=== PATIENT | female | born 1950 | race Caucasian/White ===

== ENCOUNTER 2020-03-24 08:47 | Outpatient (REF) | payer MEDICARE, MEDICAID, SELFPAY ==
--- NOTE | 2020-03-24 09:14 | MM_ITS ---
EXAMINATION: MM SCREENING DIGITAL BREAST TOMOSYNTHESIS, BILATERAL CLINICAL INFORMATION: Right lumpectomy for invasive lobular cancer 2016. Benign right stereotactic biopsy 2018 (benign breast tissue with stromal fibrosis and focal sclerosing adenosis with dystrophic calcifications). Due for yearly. COMPARISON: Mammography: 03/22/2019, 03/19/2018, 11/18/2017 TECHNIQUE: Digital breast tomosynthesis is performed in both the craniocaudal and mediolateral oblique views along with computer-aided detection (CAD). Synthesized 2D images are generated from the tomosynthesis. FINDINGS: There are scattered areas of fibroglandular density (ACR BI-RADS breast composition Category b). Parenchymal pattern is similar to prior exams. There is no developing density or interval mass or architectural abnormality. Again, there is stable scarring upper right breast along with surgical clips. There is biopsy clip marker again seen mid 12:00 left breast and 2 biopsy clip markers are present mid upper outer right breast. No significant changes. MM/MM tomosynthesis screening BI IMPRESSION: No significant changes from prior study. ASSESSMENT: BI-RADS 2: Benign RECOMMENDATION: Routine annual mammography screening. This patient's information was entered into a reminder system with a target due date for their next mammogram.
== END 2020-03-24 08:48 | disposition home or self-care (01) ==
LOC: HO.MAMMO 08:47
PROVIDERS: PCP Internal Medicine; Visit Provider Internal Medicine
DX: Z12.31 Encounter for screening mammogram for malignant neoplasm of breast (principal)
CPT/HCPCS: 77063; 77067

== ENCOUNTER 2020-06-19 14:18 | Outpatient (REF) | payer MEDICARE, MEDICAID, SELFPAY ==
[2020-06-19 14:58] LABS: MANUAL DIFF FLAG NO
[2020-06-19 15:00] LABS: Glucose Urine UA NEG (NEG); Leukocyte Esterase Urine TRACE (NEG); Nitrite Urine NEG (NEG); Urine Blood NEG (NEG); Urine Ketones NEG (NEG); Urine Protein NEG (NEG-TRACE)
[2020-06-19 15:02] LABS: Appearance Urine HAZY; Color Urine YELLOW
[2020-06-19 15:05] LABS: Basophils Percent Auto 0.8 % (0-2); Eosinophils Absolute Auto 0.1 X10*3/uL (0.0-0.4); Eosinophils Percent Auto 2.5 % (0-4); Hematocrit 42.3 % (37-47); Imm Gran Abs Auto 0.01 X10*3/uL (0.00-0.03); Imm Gran Pct Auto 0.3 % (0.0-0.4); Lymphocytes Absolute Auto 1.1 X10*3/uL (1.2-4.9); Lymphocytes Percent Auto 30.1 % (20-40); Mean Corpuscular HGB Conc 33.1 g/dl (31.0-35.0); Mean Corpuscular Hemoglobin 30.6 pg (27.0-33.0); Mean Corpuscular Volume 92.4 fL (80-98); Mean Platelet Volume 10.4 fL (9.4-12.3); Monocytes Absolute Auto 0.3 X10*3/uL (0.1-1.2); Monocytes Percent Auto 8.2 % (2-11); Neutrophils Absolute Auto 2.1 X10*3/uL (2.0-8.3); Neutrophils Percent Auto 58.1 % (45-73); Platelet Count 161 X10*3/uL (160-400); Red Blood Count 4.58 X10*6/uL (4.20-5.50); Red Cell Distribution Width 12.6 % (11.0-16.0); White Blood Count 3.7 X10*3/uL (4.8-10.8)
[2020-06-19 15:13] LABS: Mucus Urine TRACE /LPF; Squamous Epithelial Cell Urine TRACE /LPF; WBC Urine 0-2 /HPF (0-4)
[2020-06-19 15:32] LABS: Alanine Aminotransferase 13 U/L (0-31); Albumin Level 4.3 g/dL (3.5-5.0); Alkaline Phosphatase 81 U/L (39-117); Anion Gap 11 (12-20); Aspartate Amino Transferase 14 U/L (5-31); Bilirubin Total 0.3 mg/dL (0.0-1.0); Blood Urea Nitrogen 26 mg/dL (9-16); Calcium 9.1 mg/dL (8.4-10.2); Carbon Dioxide 31 mmol/L (22-29); Chloride 103 mmol/L (96-108); Cholesterol 155 mg/dL; Estimated Glomerular Filt Rate > 60; Glucose Random 107 mg/dL (60-115); HDL Cholesterol 43 mg/dL; LDL Cholesterol Calculated 76 mg/dl; Potassium 4.3 mmol/L (3.3-5.1); Sodium 141 mmol/L (135-145); Triglycerides 183 mg/dL
[2020-06-19 15:53] LABS: Thyroid Stimulating Hormone 1.36 uIU/mL (0.32-4.0)
== END 2020-06-19 14:19 | disposition home or self-care (01) ==
LOC: HO.LAB 14:18
PROVIDERS: PCP Internal Medicine; Visit Provider Internal Medicine
DX: E78.00 Pure hypercholesterolemia, unspecified (principal)
CPT/HCPCS: 36415; 80053; 80061; 81001; 84443; 85025

== ENCOUNTER 2021-03-13 12:57 | Outpatient (REF) | payer MEDICARE, MEDICAID, SELFPAY ==
--- NOTE | ~2021-03-13 | MM_ITS ---
EXAMINATION: MM DIAGNOSTIC DIGITAL BREAST TOMOSYNTHESIS, BILATERAL US DIAGNOSTIC ULTRASOUND BREAST, RIGHT CLINICAL INFORMATION: Palpable fullness posterior inferior right breast noted by patient. Prior history invasive lobular cancer right breast 2016, lumpectomy performed at [facility]. Patient reports nodes negative. Also benign right INTACT stereotactic biopsy [address] Pierre (benign breast tissue with stromal fibrosis and focal sclerosing adenosis with dystrophic calcifications). COMPARISON: Mammography: 03/24/2020, 03/22/2019, 03/19/2018, 05/07/2017 TECHNIQUE: Digital breast tomosynthesis is performed in both the craniocaudal and mediolateral oblique views along with computer-aided detection (CAD). Synthesized 2D images are generated from the tomosynthesis. Additional spot right CC and spot right LM x2 views are obtained. Ultrasound right breast is targeted to the inferior posterior breast. Additional imaging also performed right axilla. Grayscale imaging and color Doppler are performed without and with harmonics. FINDINGS: There are scattered areas of fibroglandular density (ACR BI-RADS breast composition Category b). There is new irregular mass at site of clinical concern posterior 6:00 right breast measuring approximately 1.4 x 1.9 cm. There are some associated punctate calcifications in the lesion. There are 2 old biopsy clip markers again seen right breast mid upper outer quadrant. There are surgical clips right axilla. Axillary nodes stable. Left breast appears stable from prior studies. There is a biopsy clip marker mid 12:00 position. Parenchymal asymmetry mid outer left breast is stable. No developing density or abnormal calcifications. Axillary nodes stable. Ultrasound right breast demonstrates irregular hypoechoic mass 6:00 position 5 cm from nipple with posterior shadowing and greatest dimension 1.8 cm. This corresponds to the lesion on mammography. Additional imaging right axilla shows no lymphadenopathy. Results are discussed with the patient at time of visit. Ultrasound guided core biopsy is recommended. Results and recommendation also called to oncology manager cargo (Teresita) for Dr. Rosario on 03/13/2021. MM/MM tomosynthesis diagnostic BI IMPRESSION: 1. Right: Irregular mass posterior inferior right breast 1.8 cm. 2. Left: No mammographic evidence of malignancy. ASSESSMENT: BI-RADS 4: Suspicious (subcategory 4C: High suspicion for malignancy) RECOMMENDATION: Ultrasound-guided core biopsy right breast mass. This patient's information was entered into a reminder system with a target due date for their next mammogram.
== END 2021-03-13 12:58 | disposition home or self-care (01) ==
LOC: HO.MAMMO 12:57
PROVIDERS: PCP Internal Medicine; Visit Provider Internal Medicine
DX: Z85.3 Personal history of malignant neoplasm of breast (principal)
CPT/HCPCS: 76642; 77062; 77066

== ENCOUNTER 2021-03-15 09:18 | Outpatient (REF) | payer MEDICARE, MEDICAID, SELFPAY ==
--- NOTE | ~2021-03-15 | MM_ITS ---
EXAMINATION: ULTRASOUND GUIDED CORE BIOPSY BREAST, RIGHT POST PROCEDURE DIGITAL MAMMOGRAM, RIGHT CLINICAL INFORMATION: Suspicious mass posterior inferior right breast 1.8 cm. Prior history invasive lobular cancer right breast 2016, lumpectomy performed at [facility]. COMPARISON: Mammography and targeted right breast ultrasound 03/13/2021. FINDINGS: Proper informed consent is obtained from the patient after discussion of the procedure, potential risks and complications, and alternatives. Patient was given an opportunity for questions. The patient appeared to understand. The patient consented to the procedure and signed the consent form. GUIDANCE: Ultrasound-guided; aseptic technique. LESION: Irregular hypoechoic mass posterior 6:00 position 1.8 cm. APPROACH: Lateral medial. ANESTHESIA: 16 mL carbonated 1% lidocaine. DERMATOTOMY: Single skin nitesh dermatotomy performed. NEEDLE: 14-gauge Achieve core biopsy device with 13.5-gauge co-axial guide needle. CORES: 5. CLIP: HydroMARK; shape: butterfly. POST PROCEDURE UNILATERAL DIGITAL MAMMOGRAM: The post biopsy mammogram is performed in separate room using separate digital mammography equipment from the biopsy procedure. CC and ML views are obtained.There are scattered areas of fibroglandular density (breast composition category: b). The butterfly clip marker overlies the mass in expected position. There are other clip markers upper outer quadrant right breast and surgical clips right axilla. No gross hematoma. The patient tolerated the procedure well. No immediate complications. Home instructions reviewed with the patient. Final pathology results are pending. MM/MM diagnostic mammo unilat RT IMPRESSION: 1. Status post ultrasound-guided core biopsy right breast. 2. Clip placed: HydroMARK; shape: butterfly. 3. Pathology pending. An addendum report will be issued.
[2021-03-15] MEDS: Lidocaine HCl 1 % 20 ML VIAL 9 ML SUBCUT (10:51)
[2021-03-15] MEDS: Sodium Bicarbonate 8.4% 50 MEQ/50 ML VIAL SUBCUT (10:52)
== END 2021-03-15 09:19 | disposition home or self-care (01) ==
LOC: HO.MAMMO 09:18
PROVIDERS: PCP Internal Medicine; Visit Provider Surgery
DX: R92.8 Other abnormal and inconclusive findings on diagnostic imaging of breast (principal)
CPT/HCPCS: 19083; 77065; 88305; 88360; 99202

== ENCOUNTER → 2021-03-20 10:48 | Outpatient (BNVA) | payer MEDICARE, MEDICAID, SELFPAY | PROVIDERS: PCP Internal Medicine; Referring Provider Internal Medicine; Visit Provider Surgery | DX: C50.911 Malignant neoplasm of unspecified site of right female breast (principal) | CPT/HCPCS: 99212 ==

== ENCOUNTER 2021-03-26 09:58 | Outpatient (REF) | payer MEDICARE, MEDICAID, SELFPAY ==
--- NOTE | ~2021-03-26 | US_ITS ---
EXAMINATION: US RETROPERITONEAL LIMITED (RENAL ONLY) CLINICAL INFORMATION: Essential (primary) hypertension. COMPARISON: Renal ultrasound 07/29/2019. CT abdomen and pelvis 06/16/2018. Ultrasound abdomen 10/08/2017. MRI abdomen 04/04/2017. X-ray abdomen KUB 11/29/2015. TECHNIQUE: Real-time imaging of the kidneys. FINDINGS: RIGHT KIDNEY: 11.3 x 4.2 x 5.4 cm (SAG x AP x TRV). The kidney is normal in size, contour, and echogenicity. Renal cortical thickness is normal. There is a small cyst in the lower pole measuring 9 x 6 x 9 mm. No renal calculi or hydronephrosis. LEFT KIDNEY: 11.2 x 4.7 x 4.5 cm (SAG x AP x TRV). The kidney is normal in size, contour, and echogenicity. Renal cortical thickness is normal. There is an echogenic density with twinkle artifact questionable for a stone in the upper pole measuring 5 x 5 x 7 mm. No focal parenchymal lesions or hydronephrosis. US/US renal BI IMPRESSION: Small right renal cyst. Question left renal stone.
== END 2021-03-26 09:59 | disposition home or self-care (01) ==
LOC: HO.US 09:58
PROVIDERS: PCP Internal Medicine; Visit Provider Internal Medicine
DX: I10 Essential (primary) hypertension (principal)
CPT/HCPCS: 76775

== ENCOUNTER 2021-03-29 14:04 | Outpatient (REF) | payer MEDICARE, MEDICAID, SELFPAY ==
[2021-03-29 14:17] LABS: MANUAL DIFF FLAG NO
[2021-03-29 14:49] LABS: Basophils Percent Auto 0.8 % (0-2); Eosinophils Absolute Auto 0.1 X10*3/uL (0.0-0.4); Eosinophils Percent Auto 2.8 % (0-4); Hematocrit 41.9 % (37.0-47.0); Hemoglobin 13.7 g/dl (12.0-16.0); Imm Gran Abs Auto 0.01 X10*3/uL (0.00-0.03); Imm Gran Pct Auto 0.3 % (0.0-0.4); Lymphocytes Absolute Auto 1.1 X10*3/uL (1.2-4.9); Lymphocytes Percent Auto 26.8 % (20-40); Mean Corpuscular HGB Conc 32.7 g/dl (31.0-35.0); Mean Corpuscular Hemoglobin 30.1 pg (27.0-33.0); Mean Corpuscular Volume 92.1 fL (80.0-98.0); Mean Platelet Volume 10.4 fL (9.4-12.3); Monocytes Absolute Auto 0.3 X10*3/uL (0.1-1.2); Monocytes Percent Auto 8.5 % (2-11); Neutrophils Absolute Auto 2.4 x10*3/uL (2.0-8.3); Neutrophils Percent Auto 60.8 % (45-73); Platelet Count 156 X10*3/uL (160-400); Red Blood Count 4.55 X10*6/uL (4.20-5.50); Red Cell Distribution Width 12.7 % (11.0-16.0)
[2021-03-29 15:12] LABS: Alanine Aminotransferase 12 U/L (0-31); Alkaline Phosphatase 65 U/L (39-117); Anion Gap 11 (12-20); Aspartate Amino Transferase 14 U/L (5-31); Bilirubin Total 0.9 mg/dL (0.0-1.0); Blood Urea Nitrogen 22 mg/dL (9-16); Calcium 9.6 mg/dL (8.4-10.2); Carbon Dioxide 30 mmol/L (22-29); Chloride 104 mmol/L (96-108); Estimated Glomerular Filt Rate > 60; Glucose Random 95 mg/dL (60-115); Potassium 4.2 mmol/L (3.3-5.1); Sodium 141 mmol/L (135-145); Total Protein 6.9 g/dL (6.5-8.0)
== END 2021-03-29 14:05 | disposition home or self-care (01) ==
LOC: HO.LAB 14:04
PROVIDERS: PCP Internal Medicine; Visit Provider Nurse Practitioner Acute Care
DX: Z01.818 Encounter for other preprocedural examination (principal)
CPT/HCPCS: 36415; 80053; 85025

== ENCOUNTER 2021-04-02 14:21 | Inpatient (IN) | payer MEDICARE, MEDICAID, SELFPAY ==
--- NOTE | 2021-03-28 | ECG_ITS ---
Test Reason : preop Blood Pressure : / mmHG Vent. Rate : 063 BPM Atrial Rate : 063 BPM P-R Int : 150 ms QRS Dur : 092 ms QT Int : 400 ms P-R-T Axes : 056 058 070 degrees QTc Int : 409 ms Normal sinus rhythm Normal ECG When compared with ECG of 07-OCT-2017 16:24, No significant change was found Referred By: Angle Rosa Electronically Signed By:WILBERTO PAREDES MD
[2021-03-28 12:22] VITALS: BP 174/81; PULSE 68; RESP 20; O2SAT 97; BMI 32.1
--- NOTE | 2021-03-28 12:38 | P.CONAN_ITS ---
Documented by User: Angle Rosa NP 03/28/21 13:02 HPI - Anesthesia Eval Consult details Narrative: 70yo F for Right Modified Radical Mastectomy Severe PONV Diabetes monitor, no pump PMFSH Active Problems Active Problems: All Active Problems (Updated 03/27/21 @ 10:15 by Deepika Shields, MALENA) Flank pain (Acute) UTI (urinary tract infection) (Acute) Invasive lobular carcinoma of breast in female (Chronic) Onychomycosis (Acute) Generalized anxiety disorder (Acute) Breast cancer, right (Acute) Invasive ductal carcinoma of right breast (Acute) Triple negative malignant neoplasm of breast (Acute) Overweight (BMI 25.0-29.9) (Acute) Type 2 diabetes mellitus with hyperglycemia (Acute) Hypertension (Acute) Hypercholesterolemia (Acute) GERD (gastroesophageal reflux disease) (Acute) Asthma (Acute) Past Medical History Medical History Asthma Chronic pancreatitis Congestive heart failure CVA (cerebral vascular accident) Depression Diabetic nephropathy GERD (gastroesophageal reflux disease) History of breast cancer Hypercholesterolemia Hypertension Overweight (BMI 25.0-29.9) Peripheral neuropathy Right radial head fracture Subarachnoid hemorrhage Type 2 diabetes mellitus with hyperglycemia Family History Family History Father Hypertension Stroke Mother Breast cancer, Onset Age: 60 Hypertension Diabetes CVD (cardiovascular disease) Sister Dementia Breast cancer, Onset Age: 60 Brother Parkinsons Sister Breast cancer, Onset Age: 40 Family history of problems with anesthesia: Yes (PONV) Surgical History Surgical History History of breast biopsy History of cholecystectomy History of D&C History of lumpectomy of left breast History of lumpectomy of right breast Hx of colonoscopy History of Problems with Anesthesia: Yes (SEVERE PONV) Social History Social History Housing: House Are you a primary gericare aide teacher to a significant other at home: No Do you presently have visiting nurse or other home services: No Alcohol intake: current Alcohol intake frequency: does not drink Patient Tobacco Use Status: Never used Tobacco e-Cigarette/Vaping Use: Never Used Second Hand Smoke Exposure: No service: No Current occupational status: retired Cognitive needs: No Hearing needs: No Vision needs: Yes (Glasses) Narrative Narrative: No recent illness. Describes anxiety related chest heaviness - occurs at night falling asleep or waking in the middle of the night. No chest pain with exertion. Asthma at baseline. Some SOB with exertion. Well managed with inhaler Meds Allergies Allergy/AdvReac Type Severity Reaction Status Date / Time Anesthetics - Qiana Type- Allergy Intermediate SEVERE Verified 03/29/21 13:24 Parabens VOMITTING [ANESTHETICS - QIANA TYPE- PARABENS] lisinopril [LISINOPRIL] Allergy Intermediate EDEMA IN Verified 03/29/21 13:24 HANDS AND LIPS Gadolinium-Containing Allergy Mild UPPER BODY Verified 03/29/21 13:24 Contrast Medi RASH [GADOLINIUM-CONTAINING CONTRAST] amlodipine Allergy Unknown rash Verified 03/29/21 13:24 atorvastatin Allergy Unknown Itching Verified 03/29/21 13:24 hydrochlorothiazide Allergy Unknown muscle Verified 03/29/21 13:24 cramps, rash, muscle cramps Iodinated Contrast Media Allergy Unknown severe Verified 03/29/21 13:24 itching hydrocodone [HYDROCODONE] AdvReac Intermediate RASH Verified 03/29/21 13:24 Exam Exam Date and Time: March 28, 2021 1238 Height,Weight and Vital Signs: Height 5 ft 1 in Weight 77.111 kg Last Vital Signs Pulse 68 03/28/21 12:22 Resp 20 03/28/21 12:22 BP 174/81 H 03/28/21 12:22 Pulse Ox 97 03/28/21 12:22 Pertinent Lab Results Pertinent Lab Results: Laboratory Tests 02/26/21 02/26/21 12:28 12:28 WBC 3.8 L Hgb 13.4 Hct 40.7 Plt Count 164 Sodium 140 Potassium 4.3 Chloride 105 Carbon Dioxide 28 BUN 20 H Creatinine 0.77 Airway Mallampati Class: I TM Dist: >3cm Neck ROM: Full Partial: Upper Assessment and Plan Assessment Anesthesia Assessment: Anesthesia Plan Discussed and PAT Visit Final Anesthetic Review Family History of Problems with Anesthesia: Yes (PONV) History of Problems with Anesthesia: Yes (SEVERE PONV) Documented by User: Juliana Aguirre MD 04/02/21 09:53 [facility] Past Medical History Medical History Asthma Chronic pancreatitis Congestive heart failure CVA (cerebral vascular accident) Depression Diabetic nephropathy GERD (gastroesophageal reflux disease) History of breast cancer Hypercholesterolemia Hypertension Overweight (BMI 25.0-29.9) Peripheral neuropathy Right radial head fracture Subarachnoid hemorrhage Type 2 diabetes mellitus with hyperglycemia Family History Family History Father Hypertension Stroke Mother Breast cancer, Onset Age: 60 Hypertension Diabetes CVD (cardiovascular disease) Sister Dementia Breast cancer, Onset Age: 60 Brother Parkinsons Sister Breast cancer, Onset Age: 40 Surgical History Surgical History History of breast biopsy History of cholecystectomy History of D&C History of lumpectomy of left breast History of lumpectomy of right breast Hx of colonoscopy Social History Social History Housing: House Are you a primary gericare aide teacher to a significant other at home: No Do you presently have visiting nurse or other home services: No Alcohol intake: current Alcohol intake frequency: does not drink Patient Tobacco Use Status: Never used Tobacco e-Cigarette/Vaping Use: Never Used Second Hand Smoke Exposure: No service: No Current occupational status: retired Cognitive needs: No Hearing needs: No Vision needs: Yes (Glasses) Meds Allergies Allergy/AdvReac Type Severity Reaction Status Date / Time Anesthetics - Qiana Type- Allergy Intermediate SEVERE Verified 03/29/21 13:24 Parabens VOMITTING [ANESTHETICS - QIANA TYPE- PARABENS] lisinopril [LISINOPRIL] Allergy Intermediate EDEMA IN Verified 03/29/21 13:24 HANDS AND LIPS Gadolinium-Containing Allergy Mild UPPER BODY Verified 03/29/21 13:24 Contrast Medi RASH [GADOLINIUM-CONTAINING CONTRAST] amlodipine Allergy Unknown rash Verified 03/29/21 13:24 atorvastatin Allergy Unknown Itching Verified 03/29/21 13:24 hydrochlorothiazide Allergy Unknown muscle Verified 03/29/21 13:24 cramps, rash, muscle cramps Iodinated Contrast Media Allergy Unknown severe Verified 03/29/21 13:24 itching hydrocodone [HYDROCODONE] AdvReac Intermediate RASH Verified 03/29/21 13:24 Exam Airway Mallampati Class: II Heart: rrr Lungs: cta Assessment and Plan Final Anesthetic Review NPO: Yes ASA Class: III Final Preanesthetic Review: No Changes in Pt Med Stat, Meds/Allgs Chart Reviewed and Consent Obtained/Reviewed Patient Risk: Intermediate Procedure Risk: Intermediate Anesthetic Plan Anesthetic Plan: GA Disposition: Standard PACU
[2021-04-02] VITALS (28 sets, daily range): BP systolic 52–146; BP diastolic 24–78; PULSE 30–96; RESP 15–20; TEMP 36.2–36.7; O2SAT 93–99
[2021-04-02] MEDS: Lactated Ringers 1,000 ML 50 ML IVCONT (09:15)
[2021-04-02] MEDS: Scopolamine 1.5 MG PATCH.TD.3 TRANSDERMA (09:17)
[2021-04-02 09:39] LABS: COVID-19 Test Negative (Negative); IDNOW Serial# 9DD0AD1C
--- NOTE | 2021-04-02 10:38 | MHC.SHP ---
Pre-Procedural Eval Section A Date of Service: 04/02/21 The patient is an INPATIENT: No Changes since office visit: Yes Patient answered all questions; No Cold of Flu in the past 2 weeks, No New Medical Problems and No Changes in Medication The History & Physical has been completed within 30 days and I have reviewed it.: Yes Section B Chief Complaint: Triple negative malignant neoplasm of breast Allergies: Allergies Allergy/AdvReac Type Severity Reaction Status Date / Time Anesthetics - Qiana Type- Allergy Intermediate SEVERE Verified 03/29/21 13:24 Parabens VOMITTING [ANESTHETICS - QIANA TYPE- PARABENS] lisinopril [LISINOPRIL] Allergy Intermediate EDEMA IN Verified 03/29/21 13:24 HANDS AND LIPS Gadolinium-Containing Allergy Mild UPPER BODY Verified 03/29/21 13:24 Contrast Medi RASH [GADOLINIUM-CONTAINING CONTRAST] amlodipine Allergy Unknown rash Verified 03/29/21 13:24 atorvastatin Allergy Unknown Itching Verified 03/29/21 13:24 hydrochlorothiazide Allergy Unknown muscle Verified 03/29/21 13:24 cramps, rash, muscle cramps Iodinated Contrast Media Allergy Unknown severe Verified 03/29/21 13:24 itching hydrocodone [HYDROCODONE] AdvReac Intermediate RASH Verified 03/29/21 13:24 Plan Diagnosis/Plan: Unchanged I have reviewed the history and physical and performed a pertinent physical examination on my patient. No changes have occurred unless specified.
[2021-04-02 11:29] LABS: Glucose, Whole Blood 135 mg/dL (60-115)
--- NOTE | 2021-04-02 12:30 | W.PM.OPN ---
Operative Note Operative Note Date of Service: 04/02/21 Narrative: Preoperative diagnosis:Recurrent right breast invasive ductal carcinoma, triple negative Postoperative diagnosis: same Procedure: right modified radical mastectomy Surgeon: Deepak Reeder MD Personal Lines Agent: Armida Barros PA-C Anesthesia: general LMA Indications for procedure: 70-year-old female patient strong family history of breast cancer and a previous history of invasive ductal carcinoma of the right breast status post right breast lumpectomy with localization, sentinel node biopsy,radiation therapy, now presenting with a recurrent right breast cancer. Pathology revealed invasive ductal carcinoma, ER/ UT/HER2 Abad negative. She presents today for modified radical mastectomy. Operative findings: Palpable mass noted in the inferior portion of the breast approximately the 06:00 o'clock location Specimen: right breast and axilla Estimated blood loss: 20 mL Complications: none Procedure details: patient was brought to the OR placed in a supine position. After administering general anesthesia a surgical time-out was called the consent confirmed. Preoperative antibiotics were administered and Venodyne boots were in place. Local anesthesia consisting of 0.5% Sensorcaine was infiltrated circumferentially in elliptical fashion around the right breast. Elliptical incision oriented transversely and slightly oblique towards the axilla was then created with the 10 blade. The incision was carried down into the subcutaneous tissue. Beginning in the superior incision the incision was carried down along the subcutaneous tissue over the fascia of the breast. This was continued superiorly to the clavicle. Inferior flap was then created again using electrocautery in the plane between the subcutaneous tissue and breast fashion. This was continued inferiorly to the costal margin. The dissection was continued from medial to lateral and both flaps up to the edge of the pectoralis muscle. The breast was then dissected off the chest wall using electrocautery. Hemostasis was assured all times using electrocautery. Dissection was continued laterally up to the pectoralis muscle. dissection was continued below the pectoralis major and over pectoralis minor muscle to include Britney's nodes. Dissection was continued laterally to the latissimus Collins muscle. Dissection was superiorly in the axilla to identify the axillary vein. The luz marina material was dissected below the axillary vein in continuity with the breast. Dissection was continued under the pectoralis minor muscle to include level 1 and 2 nodes. During the dissection the long thoracic nerve was identified and preserved. In addition the intercostal brachial nerve and thoracodorsal nerve, artery and vein were preserved. the specimen is removed marked with a long suture at the axilla short suture at the medial margin and looped suture at the superior margin. The wounds were then irrigated and checked for hemostasis. Two large (10 ) Perry-Choi drains were obtained and placed through separate stab wounds. One was placed at the axilla 2nd was placed at the superior skin flap. This was secured to the chest wall using a 3-0 nylon suture. Skin was then closed using interrupted 3-0 Polysorb sutures to reapproximate dermis and a running subcuticular 4-0 Polysorb suture for skin. Steri-Strips, gauze and paper tape were then applied. A breast binder was also applied. The patient tolerated the procedure well. Sponge, instrument, and needle counts reported as correct. The patient was transferred to PACU in stable condition. Breast Axillary Dissection Resection was performed within the boundaries of the axillary vein, chest wall (serratus anterior), and latissimus dorsi: Yes The long thoracic and thoracodorsal nerves were spared during dissection: Yes Attempts were made to spare the intercostobrachial nerves during dissection if possible: Yes General Surg. - Synoptic Notes Breast Axillary Dissection Resection was performed within the boundaries of the axillary vein, chest wall (serratus anterior), and latissimus dorsi: Yes The long thoracic and thoracodorsal nerves were spared during dissection: Yes Attempts were made to spare the intercostobrachial nerves during dissection if possible: Yes
[2021-04-02 17:05] LABS: Glucose, Whole Blood 154 mg/dL (60-115)
[2021-04-02 17:14] LABS: Basophils Percent Auto 0.3 % (0-2); Eosinophils Percent Auto 0.1 % (0-4); Hematocrit 36.6 % (37.0-47.0); Hemoglobin 11.9 g/dl (12.0-16.0); Imm Gran Abs Auto 0.03 X10*3/uL (0.00-0.03); Imm Gran Pct Auto 0.4 % (0.0-0.4); Lymphocytes Absolute Auto 0.6 X10*3/uL (1.2-4.9); MANUAL DIFF FLAG NO; Mean Corpuscular HGB Conc 32.5 g/dl (31.0-35.0); Mean Corpuscular Volume 92.2 fL (80.0-98.0); Mean Platelet Volume 10.4 fL (9.4-12.3); Monocytes Absolute Auto 0.2 X10*3/uL (0.1-1.2); Monocytes Percent Auto 3.5 % (2-11); Neutrophils Percent Auto 86.7 % (45-73); Platelet Count 152 X10*3/uL (160-400); Red Blood Count 3.97 X10*6/uL (4.20-5.50); Red Cell Distribution Width 12.7 % (11.0-16.0); White Blood Count 6.9 X10*3/uL (4.8-10.8)
--- NOTE | 2021-04-02 17:14 | PC.NURSE ---
DR. COLT JOHNSON CARINA DRAINS TO ENSURE PATENCY. ADDITIONAL PRESSURE DRESSING BEING PLACED.
--- NOTE | 2021-04-02 17:34 | PM.EVENT ---
Event Note Date of Service: 04/02/21 Event Note: Patient developed chest wall hematoma followed by bradycardia and hypotension. Paitent denies significant discomfort. Atropine, phenylephrine, and fluid bolus given. Small clot evacuated from the CARINA drain. 85 mls drained from the axillary drain and 5 ml from the chest wall drain. Patient is now awake and alert, comfortable, BP 120 systolic, HR 88. Will hold BP meds; consult hospitalist team. Patient's daughter, Thai, updated on the events and patient's current condition.
--- NOTE | 2021-04-02 17:44 | P.EN_ITS ---
Event Note Date of Service: 04/02/21 Event Note: Anesthesia stat was called in the PACU on this post-op patient at 16:36. On our evaluation , the patient was protecting her airway , saturating above 95 % on Nasal cannula , but patient was bradycardiac in 30s and hypotensive . As per ACLS protocol we administered atropine that improved the HR to 90s and also improved the blood pressure . The Blood pressure improved but was still in 80s systolic . We opened the IV fluid wide open and also gave a dose of phenylephrine , 100mcg . With these interventions the HR and BP improved . We checked POC glucose which was WNL . As per nursing the patient became hypotensive and bradycardiac around the time when she had increased bloody out- put from CARINA drains as well as hematoma at surgical site . CBC and type and screen were sent stat . The surgical team evaluated the patient at the bedside and placed a pressure dressing at the surgical site The patient is now haemodynamically stable , mentation, OK, protecting her airway saturating 95-100 % on NC . Rafal Sargent MD Anesthesiology
--- NOTE | 2021-04-02 17:49 | PC.NURSE ---
3066 anesthesia administered 100 mcg phenylephrine related to ongoing hypotension symptomatic. dr. vega en route to assess patient related to bleeding and hypotension. lab at bedside for h/h and stat type and screen.
--- NOTE | 2021-04-02 18:31 | PC.NURSE ---
DR. GREGORY NOTIFIED PATIENT ON LABETOLOL AND NO POST OP ANTIBIOTIC ORDERED. Angie REPORTS PLAN TO HOLD LABETOLOL PLACE ORDER
--- NOTE | 2021-04-02 19:17 | P.CONHOSP_ITS ---
History of Present Illness Data of Consult Service Date: 04/02/21 Requesting physician: Deepak Reeder Primary Care Provider: Osvaldo Guerra MD HPI asked to see this 70-year-old postop female for issues related to hypotension. She is status post right mastectomy and developed bradycardia and mild hypotension in PACU. Staff states this was after adjustment of CARINA drains. Rhythm strips demonstrated sinus bradycardia in the 30 for which she was given atropine and Rahul-Synephrine. She resolve this episode on the floor a similar episode happened with adjustments to the drain. No meds were given IV fluids we re hung and she resolve spontaneously. At the time I am seeing her, she is asymptomatic and talking Review of Systems Review of Systems: denies chest pain Denies shortness of breath Denies nausea vomiting diarrhea PMFSH Medical History Asthma Chronic pancreatitis Congestive heart failure CVA (cerebral vascular accident) Depression Diabetic nephropathy GERD (gastroesophageal reflux disease) History of breast cancer Hypercholesterolemia Hypertension Overweight (BMI 25.0-29.9) Peripheral neuropathy Right radial head fracture Subarachnoid hemorrhage Type 2 diabetes mellitus with hyperglycemia Family History Father Hypertension Stroke Mother Breast cancer, Onset Age: 60 Hypertension Diabetes CVD (cardiovascular disease) Sister Dementia Breast cancer, Onset Age: 60 Brother Parkinsons Sister Breast cancer, Onset Age: 40 Surgical History History of breast biopsy History of cholecystectomy History of D&C History of lumpectomy of left breast History of lumpectomy of right breast History of right mastectomy Hx of colonoscopy Social History Housing: House Are you a primary health careers instructor to a significant other at home: No Do you presently have visiting nurse or other home services: No Alcohol intake: current Alcohol intake frequency: does not drink Patient Tobacco Use Status: Never used Tobacco e-Cigarette/Vaping Use: Never Used Second Hand Smoke Exposure: No Use of substances other than those prescribed or required for medical reasons: No Currently Displaying Signs/Symptoms of Drug Intoxication Withdrawal: No Have you been hit, kicked, punched, or otherwise hurt by someone within the past year? If so, by whom?: No Are you DNR?: No Advance Directives: No Advance Directives Information Provided: Yes (Given to Patient at [facility]) Advance Directives on File: No Do you have thoughts of harming others: None Do you have a plan to hurt others: No Plan Recently lost weight without trying: No Eating poorly because of decreased appetite: No Nutrition Risks: No Nutritional Risk Patient : No service: No Current occupational status: retired Cognitive needs: No Hearing needs: No Vision needs: Yes (Glasses) Meds Allergies Allergy/AdvReac Type Severity Reaction Status Date / Time Anesthetics - Qiana Type- Allergy Intermediate SEVERE Verified 03/29/21 13:24 Parabens VOMITTING [ANESTHETICS - QIANA TYPE- PARABENS] lisinopril [LISINOPRIL] Allergy Intermediate EDEMA IN Verified 03/29/21 13:24 HANDS AND LIPS Gadolinium-Containing Allergy Mild UPPER BODY Verified 03/29/21 13:24 Contrast Medi RASH [GADOLINIUM-CONTAINING CONTRAST] amlodipine Allergy Unknown rash Verified 03/29/21 13:24 atorvastatin Allergy Unknown Itching Verified 03/29/21 13:24 hydrochlorothiazide Allergy Unknown muscle Verified 03/29/21 13:24 cramps, rash, muscle cramps Iodinated Contrast Media Allergy Unknown severe Verified 03/29/21 13:24 itching hydrocodone [HYDROCODONE] AdvReac Intermediate RASH Verified 03/29/21 13:24 Active Medications: Current Medications Albuterol Sulfate (Albuterol Sulfate 90 Mcg 8 Gm Inhaler) 2 puff INHALE Q6H PRN PRN Reason: bronchospasm Dextrose (Dextrose 50 % 25 Gm/50 Ml Vial) 25 gm IVPUSH Q15M PRN; Protocol PRN Reason: per Hypoglycemia Standing Ord. Docusate Sodium (Docusate Sodium 100 Mg Capsule) 100 mg PO DAILY PRN PRN Reason: Constipation Glucose (Glucose Gel 15 Gm Gel..Gram.) 15 gm PO Q15M PRN; Protocol PRN Reason: per Hypoglycemia Standing Ord. Acetaminophen (Ofirmev) 1,000 mg in 100 mls @ 400 mls/hr IV Q6H SUSAN Lactated Ringer's (Lr) 1,000 mls @ 100 mls/hr IVCONT .Q10H SUSAN Sodium Chloride (Ns) 1,000 mls @ 999 mls/hr IV .Q1H1M SUSAN Stop: 04/02/21 20:15 Insulin Human Lispro (Insulin Lispro 100 Unit/Ml 3 Ml Vial) 0 unit SUBCUT QIDACHS [facility]; Protocol Last Admin: 04/02/21 19:11 Dose: Not Given Documented by: Magnesium Oxide (Magnesium Oxide 400 Mg Tablet) 400 mg PO DAILY [facility] Morphine Sulfate (Morphine Sulfate 4 Mg/Ml Cartridge) 4 mg IVPUSH Q3H PRN; Protocol PRN Reason: Pain, Severe (Pain Scale 7-10) Omeprazole (Omeprazole 20 Mg Capsule.Dr) 20 mg PO DAILY@0630 [facility] Ondansetron HCl (Ondansetron Hcl 4 Mg/2 Ml Vial) 4 mg IVPUSH Q8H PRN PRN Reason: Nausea and Vomiting Oxycodone HCl (Oxycodone Hcl Immed Release 5 Mg Tablet) 5 mg PO Q6H PRN PRN Reason: Pain, Moderate (Pain Scale 4-6 Sodium Chloride (0.9 % Sodium Chloride Flush 3 Ml Syringe) 3 ml IVFLUSH QSHIFT [facility] Vitamin D (Cholecalciferol (Vitamin D3) 25 Mcg Tablet) 50 mcg PO DAILY [facility] Zolpidem Tartrate (Zolpidem Tartrate 5 Mg Tablet) 5 mg PO BEDTIME PRN PRN Reason: Insomnia Physical Exam Vital Signs and Narrative: Vital Signs: Last Vital Signs Temp 97.1 F 04/02/21 19:07 Pulse 77 04/02/21 19:07 Resp 16 04/02/21 19:07 BP 100/52 L 04/02/21 19:07 Pulse Ox 95 04/02/21 19:07 BMI result Body Mass Index 32.1 Const: Other: awake alert oriented x3 no acute distress Chest: Other: 2 CARINA ease right upper chest; type dressing Resp: Other: clear to auscultation bilaterally no rales rhonchi wheezes Cardio: Other: no S4; positive S1-S2; no S3 murmurs rubs or gallops GI: Other: soft nontender nondistended with normoactive bowel sounds Neuro: Other: cranial nerves 2-12 grossly intact as tested. Motor is 5/5 bilaterally. Sensation is intact. Cognition appropriate Extrem: Other: no edema bilaterally Results Labs CBC and Chem 7: 04/03/21 04:58 04/03/21 04:58 Labs: Laboratory Results - last 24 hr 12/04/02/21 04/02/21 09:07 09:11 16:56 MCV 92.2 MCH 30.0 MCHC 32.5 RDW 12.7 Plt Count 152 L MPV 10.4 Immature Gran % (Auto) 0.4 Neut % (Auto) 86.7 H Lymph % (Auto) 9.0 L [place] % (Auto) 3.5 Eos % (Auto) 0.1 Baso % (Auto) 0.3 Lymph # (Auto) 0.6 L [place] # (Auto) 0.2 Eos # (Auto) 0.0 Baso # (Auto) 0.0 Abs Immat Gran (auto) 0.03 Absolute Neuts (auto) 6.0 Absolute Nucleated RBC 0.000 Nucleated RBC % (auto) 0.0 POC Glucose 135 H COVID-19 ([facility]) Negative COVID-19 Clin Com See Note Blood Type Antibody Screen 04/02/21 04/02/21 16:56 17:00 MCV MCH MCHC RDW Plt Count MPV Immature Gran % (Auto) Neut % (Auto) Lymph % (Auto) [place] % (Auto) Eos % (Auto) Baso % (Auto) Lymph # (Auto) [place] # (Auto) Eos # (Auto) Baso # (Auto) Abs Immat Gran (auto) Absolute Neuts (auto) Absolute Nucleated RBC Nucleated RBC % (auto) POC Glucose 154 H COVID-19 ([facility]) COVID-19 Clin Com Blood Type O Positive Antibody Screen NEGATIVE Assessment and Plan (1) Hypotension: Status: Acute (2) Cyst of right kidney: Status: Acute (3) Triple negative malignant neoplasm of breast: Status: Acute 70-year-old female postop right total mastectomy with flap developed transient hypotension most likely related to vagal vagal episode. Spontaneously returned to baseline 1. Hypotension immediate post-op right total mastectomy secondary to triple negative breast Ca Likely vasovegal. Would continue IVF's x 1 liter and re assess. Has Hx CHF ...last echo with well preserved LV function 2.DMII Continue sliding scale and adjust as indicated. Add back outpatient regimen as intake improves 3. HTN Hold antihypertensives. Will restart when appropriate 4.Asthma Mild Intermittant..will order prn Albuterol nebs 5. GERD COntinue PPI Will follow . Thanks
--- NOTE | 2021-04-02 19:24 | PC.NURSE ---
Patient arrived from pacu. CARINA drains emptied. BP 74/46. HOB flat. Asymptomatic. 1L NS bolus started. BP 108/62. pressure dressing in place. Some tenderness over dressing.
[2021-04-02] MEDS: Lactated Ringers 1,000 ML 100 ML IVCONT (19:42)
[2021-04-02] MEDS: 0.9 % Sodium Chloride 1,000 ML 999 ML IV (19:44)
[2021-04-02 21:34] LABS: Glucose, Whole Blood 146 mg/dL (60-115)
[2021-04-03] VITALS (7 sets, daily range): BP systolic 107–149; BP diastolic 48–73; PULSE 76–102; RESP 14–18; TEMP 36.2–37.1; O2SAT 93–98
[2021-04-03] MEDS: Lactated Ringers 1,000 ML 100 ML IVCONT ×2 (06:01→19:50)
[2021-04-03] MEDS: Omeprazole 20 MG CAPSULE.DR PO (06:01)
[2021-04-03 06:02] LABS: MANUAL DIFF FLAG NO
[2021-04-03 06:10] LABS: Basophils Percent Auto 0.6 % (0-2); Eosinophils Percent Auto 0.6 % (0-4); Hematocrit 30.1 % (37.0-47.0); Hemoglobin 9.9 g/dl (12.0-16.0); Imm Gran Abs Auto 0.01 X10*3/uL (0.00-0.03); Imm Gran Pct Auto 0.2 % (0.0-0.4); Lymphocytes Absolute Auto 0.7 X10*3/uL (1.2-4.9); Lymphocytes Percent Auto 14.8 % (20-40); Mean Corpuscular HGB Conc 32.9 g/dl (31.0-35.0); Mean Corpuscular Hemoglobin 30.3 pg (27.0-33.0); Mean Platelet Volume 10.9 fL (9.4-12.3); Monocytes Absolute Auto 0.4 X10*3/uL (0.1-1.2); Monocytes Percent Auto 8.1 % (2-11); Neutrophils Absolute Auto 3.6 x10*3/uL (2.0-8.3); Neutrophils Percent Auto 75.7 % (45-73); Platelet Count 122 X10*3/uL (160-400); Red Blood Count 3.27 X10*6/uL (4.20-5.50); Red Cell Distribution Width 12.7 % (11.0-16.0); White Blood Count 4.8 X10*3/uL (4.8-10.8)
[2021-04-03 06:28] LABS: Anion Gap 9 (12-20); Blood Urea Nitrogen 19 mg/dL (9-16); Calcium 8.1 mg/dL (8.4-10.2); Carbon Dioxide 26 mmol/L (22-29); Chloride 107 mmol/L (96-108); Creatinine Clr Calc Pharmacy 63.2; Estimated Glomerular Filt Rate > 60; Glucose Random 180 mg/dL (60-115); Potassium 4.1 mmol/L (3.3-5.1); Sodium 138 mmol/L (135-145)
[2021-04-03 07:23] LABS: Glucose, Whole Blood 154 mg/dL (60-115)
--- NOTE | 2021-04-03 07:39 | P.PNGS_ITS ---
Subjective Subjective Date of Service: 04/03/21 Interval history: POD #1 s/p right MRM, c/o right chest at upper flap. She has been up, ambulated to . Physical Exam Vital Signs: Vital Signs: Last Vital Signs Temp 98.3 F 04/03/21 07:28 Pulse 79 04/03/21 07:28 Resp 18 04/03/21 07:28 BP 119/51 L 04/03/21 07:28 Pulse Ox 93 04/03/21 07:28 BMI result Body Mass Index 32.1 Const: General: no acute distress, alert and awake Nutritional Appearance: well nourished Orientation/consciousness: patient oriented x3 Limitations: no limitations HENMT: Head: Yes normocephalic and Yes atraumatic Neck: Other: no ecchymosis Chest: Other: pressure dressing removed from right chest. Slight swelling of right chest; hematoma improved. CARINA with sanguinous output. Resp: Effort & Inspection: normal respiratory effort, no cough and no respiratory distress GI: Inspection: Yes normal to inspection Skin: General skin exam: no rashes or lesions noted Neuro: General: patient oriented x3 Extrem: General: Yes capillary refill normal and Yes edema Objective Data Active Medications Albuterol Sulfate (Albuterol Sulfate 90 Mcg 8 Gm Inhaler) 2 puff INHALE Q6H PRN PRN Reason: bronchospasm Dextrose (Dextrose 50 % 25 Gm/50 Ml Vial) 25 gm IVPUSH Q15M PRN; Protocol PRN Reason: per Hypoglycemia Standing Ord. Docusate Sodium (Docusate Sodium 100 Mg Capsule) 100 mg PO DAILY PRN PRN Reason: Constipation Glucose (Glucose Gel 15 Gm Gel..Gram.) 15 gm PO Q15M PRN; Protocol PRN Reason: per Hypoglycemia Standing Ord. Acetaminophen (Ofirmev) 1,000 mg in 100 mls @ 400 mls/hr IV Q6H [facility] Last Infusion: 04/03/21 06:18 Dose: 0 mls/hr Documented by: BULMARO Lactated Ringer's (Lr) 1,000 mls @ 100 mls/hr IVCONT .Q10H [facility] Last Admin: 04/03/21 06:01 Dose: 100 mls/hr Documented by: BULMARO Insulin Human Lispro (Insulin Lispro 100 Unit/Ml 3 Ml Vial) 0 unit SUBCUT QIDACHS [facility]; Protocol Last Admin: 04/02/21 19:51 Dose: Not Given Documented by: BULMARO Non-Admin Reason: No Insulin Coverage Magnesium Oxide (Magnesium Oxide 400 Mg Tablet) 400 mg PO DAILY [facility] Morphine Sulfate (Morphine Sulfate 4 Mg/Ml Cartridge) 4 mg IVPUSH Q3H PRN; Protocol PRN Reason: Pain, Severe (Pain Scale 7-10) Omeprazole (Omeprazole 20 Mg Capsule.Dr) 20 mg PO DAILY@0630 [facility] Last Admin: 04/03/21 06:01 Dose: 20 mg Documented by: BULMARO Ondansetron HCl (Ondansetron Hcl 4 Mg/2 Ml Vial) 4 mg IVPUSH Q8H PRN PRN Reason: Nausea and Vomiting Oxycodone HCl (Oxycodone Hcl Immed Release 5 Mg Tablet) 5 mg PO Q6H PRN PRN Reason: Pain, Moderate (Pain Scale 4-6 Sodium Chloride (0.9 % Sodium Chloride Flush 3 Ml Syringe) 3 ml IVFLUSH QSHIFT [facility] Last Admin: 04/03/21 00:25 Dose: Not Given Documented by: BULMARO Non-Admin Reason: IV Running Vitamin D (Cholecalciferol (Vitamin D3) 25 Mcg Tablet) 50 mcg PO DAILY [facility] Zolpidem Tartrate (Zolpidem Tartrate 5 Mg Tablet) 5 mg PO BEDTIME PRN PRN Reason: Insomnia Labs CBC & Chem 7: 04/03/21 04:58 04/03/21 04:58 Labs: Laboratory Results - last 24 hr 04/02/21 04/02/21 04/02/21 09:07 09:11 16:56 MCV 92.2 MCH 30.0 MCHC 32.5 RDW 12.7 Plt Count 152 L MPV 10.4 Immature Gran % (Auto) 0.4 Neut % (Auto) 86.7 H Lymph % (Auto) 9.0 L [place] % (Auto) 3.5 Eos % (Auto) 0.1 Baso % (Auto) 0.3 Lymph # (Auto) 0.6 L [place] # (Auto) 0.2 Eos # (Auto) 0.0 Baso # (Auto) 0.0 Abs Immat Gran (auto) 0.03 Absolute Neuts (auto) 6.0 Absolute Nucleated RBC 0.000 Nucleated RBC % (auto) 0.0 Anion Gap Estim Creat Clear Calc Estimated GFR POC Glucose 135 H Random Glucose Calcium COVID-19 ([facility]) Negative COVID-19 [employer] See Note Blood Type Antibody Screen 04/02/21 04/02/21 04/02/21 16:56 17:00 19:46 MCV MCH MCHC RDW Plt Count MPV Immature Gran % (Auto) Neut % (Auto) Lymph % (Auto) [place] % (Auto) Eos % (Auto) Baso % (Auto) Lymph # (Auto) [place] # (Auto) Eos # (Auto) Baso # (Auto) Abs Immat Gran (auto) Absolute Neuts (auto) Absolute Nucleated RBC Nucleated RBC % (auto) Anion Gap Estim Creat Clear Calc Estimated GFR POC Glucose 154 H 146 H Random Glucose Calcium COVID-19 ([facility]) Disruption Corp Blood Type O Positive Antibody Screen NEGATIVE 04/03/21 04/03/21 04/03/21 04:58 04:58 07:18 MCV 92.0 MCH 30.3 MCHC 32.9 RDW 12.7 Plt Count 122 L MPV 10.9 Immature Gran % (Auto) 0.2 Neut % (Auto) 75.7 H Lymph % (Auto) 14.8 L [place] % (Auto) 8.1 Eos % (Auto) 0.6 Baso % (Auto) 0.6 Lymph # (Auto) 0.7 L [place] # (Auto) 0.4 Eos # (Auto) 0.0 Baso # (Auto) 0.0 Abs Immat Gran (auto) 0.01 Absolute Neuts (auto) 3.6 Absolute Nucleated RBC 0.000 Nucleated RBC % (auto) 0.0 Anion Gap 9 L Estim Creat Clear Calc 63.2 Estimated GFR > 60 POC Glucose 154 H Random Glucose 180 H Calcium 8.1 L D COVID-19 ([facility]) COVID-[employer] Blood Type Antibody Screen Procedures Date of Service Date of Service: 04/03/21 Progress Note: A&P Assessment and plan (1) Invasive ductal carcinoma of right breast: Status: Acute (2) Triple negative malignant neoplasm of breast: Status: Acute Assessment and Plan: 70 year old female found to have a recurrent right breast cancer, s/p us guided core biopsy, positive for invasive ductal carcinoma, ER/[place]/Her2-eleno negative, s/p right MRM, POD #1. Patient developed postoperative hypotension and bradycardia while in the PACU, possibly due to a vasovagal reaction. She responded to Atropine and Phenylephedrine. H/H has drifted downard as expected. This morning she is awake with some discomfort. She has not received any pain medication this morning. Plan to continue observation of the hematoma, continue breast binder, OOB. Monitor CARINA output and H/H. Appreciate Dr. Zuniga's evaluation. Oncology consultation as OP once pathology returns (Dr. Rosario). Fall Risk Details Current Medications: Current Medications Albuterol Sulfate (Albuterol Sulfate 90 Mcg 8 Gm Inhaler) 2 puff INHALE Q6H PRN PRN Reason: bronchospasm Dextrose (Dextrose 50 % 25 Gm/50 Ml Vial) 25 gm IVPUSH Q15M PRN; Protocol PRN Reason: per Hypoglycemia Standing Ord. Docusate Sodium (Docusate Sodium 100 Mg Capsule) 100 mg PO DAILY PRN PRN Reason: Constipation Glucose (Glucose Gel 15 Gm Gel..Gram.) 15 gm PO Q15M PRN; Protocol PRN Reason: per Hypoglycemia Standing Ord. Acetaminophen (Ofirmev) 1,000 mg in 100 mls @ 400 mls/hr IV Q6H [facility] Last Infusion: 04/03/21 06:18 Dose: Infused Documented by: Lactated Ringer's (Lr) 1,000 mls @ 100 mls/hr IVCONT .Q10H [facility] Last Admin: 04/03/21 06:01 Dose: 100 mls/hr Documented by: Insulin Human Lispro (Insulin Lispro 100 Unit/Ml 3 Ml Vial) 0 unit SUBCUT QIDACHS [facility]; Protocol Last Admin: 04/02/21 19:51 Dose: Not Given Documented by: Magnesium Oxide (Magnesium Oxide 400 Mg Tablet) 400 mg PO DAILY [facility] Morphine Sulfate (Morphine Sulfate 4 Mg/Ml Cartridge) 4 mg IVPUSH Q3H PRN; Protocol PRN Reason: Pain, Severe (Pain Scale 7-10) Omeprazole (Omeprazole 20 Mg Capsule.) 20 mg PO DAILY@0630 [facility] Last Admin: 04/03/21 06:01 Dose: 20 mg Documented by: Ondansetron HCl (Ondansetron Hcl 4 Mg/2 Ml Vial) 4 mg IVPUSH Q8H PRN PRN Reason: Nausea and Vomiting Oxycodone HCl (Oxycodone Hcl Immed Release 5 Mg Tablet) 5 mg PO Q6H PRN PRN Reason: Pain, Moderate (Pain Scale 4-6 Sodium Chloride (0.9 % Sodium Chloride Flush 3 Ml Syringe) 3 ml IVFLUSH QSHIFT [facility] Last Admin: 04/03/21 00:25 Dose: Not Given Documented by: Vitamin D (Cholecalciferol (Vitamin D3) 25 Mcg Tablet) 50 mcg PO DAILY [facility] Zolpidem Tartrate (Zolpidem Tartrate 5 Mg Tablet) 5 mg PO BEDTIME PRN PRN Reason: Insomnia Time Spent With Patient Time: Total time spent is greater than 50% in coordination of care (as documented) at patient's floor/unit and/or counseling patient: Time with patient: 15 - 24 minutes Quality Stroke Does the patient have a stroke diagnosis?: No VTE Prior VTE?: No VTE Risk Level:: Surgical - moderate VTE Device Contraindication: N/A - Device Ordered VTE Drug Contraindication: Treatment Not Indicated
[2021-04-03] MEDS: Cholecalciferol (Vitamin D3) 25 MCG TABLET 50 MCG PO (08:04)
[2021-04-03] MEDS: Magnesium Oxide 400 MG TABLET PO (08:04)
[2021-04-03] MEDS: Insulin Lispro 100 UNIT/ML 3 ML VIAL SUBCUT ×3 (08:08→20:30)
[2021-04-03] MEDS: 0.9 % Sodium Chloride Flush 3 ML SYRINGE IVFLUSH (08:08)
--- NOTE | 2021-04-03 08:16 | PHA.MEDREC ---
Pharmacy Consult ? Medication Reconciliation Pharmacy has reviewed the medication reconciliation. Completed by RN. Pari Curtis, PharmD
--- NOTE | 2021-04-03 09:51 | P.POSTANES_ITS ---
Post Anesthesia Evaluation Post Anesthesia Evaluation Vital Signs: Vital Signs Temp Pulse Resp BP Pulse Ox 04/03/21 08:00 98.3 F 79 18 119/51 L 93 04/03/21 07:28 98.3 F 79 18 119/51 L 93 04/03/21 03:29 97.2 F 76 18 107/48 L 95 04/02/21 23:23 98.1 F 83 18 117/57 L 96 Anesthesia: General LMA Mental Status: Awake Pain Control: Satisfactory Nausea/Vomiting: None Hydration: Adequate Anesthesia-Related Issues: No Anes. Related Issues Comments: pt has hematoma of right breast mastectomy area, had bradycardia in P ACU, when she had pain.
--- NOTE | 2021-04-03 10:35 | P.CDIC_ITS ---
CDI Concurrent Query Documentation Clarification: PHYSICIAN'S DOCUMENTATION REQUEST Date of Query: 04/03/21 1037 Patient Name: Sandee Valles Admit Date: 04/02/21 Dear Doctor, A review of the medical record indicates additional documentation may be needed. Please review below and update the documentation accordingly. Risk Factors/Clinical Indicators/Treatments Surgery on 04/02/21 for right modified radical? mastectomy per MD note 04/02/21, developed chest wall hematoma Please clarify the following: * Chest wall hematoma is an expected occurrence following this surgery and is not a complication of the surgery. * Chest wall hematoma is a complication but not due to the surgery. * Specify cause * Chest wall hematoma is not an expected occurrence following this surgery but is not a complication of the surgery * Other (please specify) * Unable to determine Use of terms such as suspected, likely, concern for, or probable (associated with a specific diagnosis that is being evaluated, monitored, or treated as if i t exists) are acceptable and can be coded in the inpatient setting, when documented at the time of discharge. Thank you, Brittany Gallardo RN Extension: [phone] Please use your independent medical judgment in providing your response. THIS QUERY IS PART OF THE PERMANENT MEDICAL RECORD Provider Response: Other Other Diagnosis: Chest wall hematoma is a known complication of the surgery and is an expected occurrence.
[2021-04-03 11:03] LABS: Glucose, Whole Blood 164 mg/dL (60-115)
--- NOTE | 2021-04-03 14:38 | HO.PM.IMPN ---
Subjective Subjective Date of Service: 04/03/21 Interval History: responded well to IV fluids; episodes self limiting. No further acute events overnight Review of Systems denies chest pain Denies shortness of breath Denies nausea vomiting diarrhea Physical Exam Vital Signs: Vital Signs: Last Vital Signs Temp 97.1 F 04/03/21 12:00 Pulse 78 04/03/21 12:00 Resp 18 04/03/21 12:00 BP 141/61 H 04/03/21 12:00 Pulse Ox 93 04/03/21 12:00 BMI result Body Mass Index 32.1 Const: Other: awake alert oriented x3 no acute distress Chest: Other: 2 CARINA ease right upper chest; type dressing Resp: Other: clear to auscultation bilaterally no rales rhonchi wheezes Cardio: Other: no S4; positive S1-S2; no S3 murmurs rubs or gallops GI: Other: soft nontender nondistended with normoactive bowel sounds Neuro: Other: cranial nerves 2-12 grossly intact as tested. Motor is 5/5 bilaterally. Sensation is intact. Cognition appropriate Extrem: Other: no edema bilaterally Objective Data Active Medications Albuterol Sulfate (Albuterol Sulfate 90 Mcg 8 Gm Inhaler) 2 puff INHALE Q6H PRN PRN Reason: bronchospasm Albuterol/Ipratropium (Albuterol/Iprat 2.5/0.5mg 3 Ml Ampul.Neb) 3 ml INHALE RQ4H PRN PRN Reason: Wheezing Dextrose (Dextrose 50 % 25 Gm/50 Ml Vial) 25 gm IVPUSH Q15M PRN; Protocol PRN Reason: per Hypoglycemia Standing Ord. Docusate Sodium (Docusate Sodium 100 Mg Capsule) 100 mg PO DAILY PRN PRN Reason: Constipation Glucose (Glucose Gel 15 Gm Gel..Gram.) 15 gm PO Q15M PRN; Protocol PRN Reason: per Hypoglycemia Standing Ord. Acetaminophen (Ofirmev) 1,000 mg in 100 mls @ 400 mls/hr IV Q6H [facility] Last Infusion: 04/03/21 12:51 Dose: 0 mls/hr Documented by: VINCENT Lactated Ringer's (Lr) 1,000 mls @ 100 mls/hr IVCONT .Q10H SUSAN Last Admin: 04/03/21 06:01 Dose: 100 mls/hr Documented by: BULMARO Insulin Human Lispro (Insulin Lispro 100 Unit/Ml 3 Ml Vial) 0 unit SUBCUT QIDACHS [facility]; Protocol Last Admin: 04/03/21 12:19 Dose: 2 unit Documented by: VINCENT Magnesium Oxide (Magnesium Oxide 400 Mg Tablet) 400 mg PO DAILY [facility] Last Admin: 04/03/21 08:04 Dose: 400 mg Documented by: VINCENT Morphine Sulfate (Morphine Sulfate 4 Mg/Ml Cartridge) 4 mg IVPUSH Q3H PRN; Protocol PRN Reason: Pain, Severe (Pain Scale 7-10) Omeprazole (Omeprazole 20 Mg Capsule.Dr) 20 mg PO DAILY@0630 [facility] Last Admin: 04/03/21 06:01 Dose: 20 mg Documented by: BULMARO Ondansetron HCl (Ondansetron Hcl 4 Mg/2 Ml Vial) 4 mg IVPUSH Q8H PRN PRN Reason: Nausea and Vomiting Oxycodone HCl (Oxycodone Hcl Immed Release 5 Mg Tablet) 5 mg PO Q6H PRN PRN Reason: Pain, Moderate (Pain Scale 4-6 Sodium Chloride (0.9 % Sodium Chloride Flush 3 Ml Syringe) 3 ml IVFLUSH QSHIFT [facility] Last Admin: 04/03/21 08:08 Dose: 3 ml Documented by: VINCENT Vitamin D (Cholecalciferol (Vitamin D3) 25 Mcg Tablet) 50 mcg PO DAILY [facility] Last Admin: 04/03/21 08:04 Dose: 50 mcg Documented by: VINCENT Zolpidem Tartrate (Zolpidem Tartrate 5 Mg Tablet) 5 mg PO BEDTIME PRN PRN Reason: Insomnia Labs CBC & Chem 7: 04/03/21 04:58 04/03/21 04:58 Labs: Laboratory Results - last 24 hr 04/02/21 04/02/21 04/02/21 16:56 16:56 17:00 MCV 92.2 MCH 30.0 MCHC 32.5 RDW 12.7 Plt Count 152 L MPV 10.4 Immature Gran % (Auto) 0.4 Neut % (Auto) 86.7 H Lymph % (Auto) 9.0 L [place] % (Auto) 3.5 Eos % (Auto) 0.1 Baso % (Auto) 0.3 Lymph # (Auto) 0.6 L [place] # (Auto) 0.2 Eos # (Auto) 0.0 Baso # (Auto) 0.0 Abs Immat Gran (auto) 0.03 Absolute Neuts (auto) 6.0 Absolute Nucleated RBC 0.000 Nucleated RBC % (auto) 0.0 Anion Gap Estim Creat Clear Calc Estimated GFR POC Glucose 154 H Random Glucose Calcium Blood Type O Positive Antibody Screen NEGATIVE 04/02/21 04/03/21 04/03/21 19:46 04:58 04:58 MCV 92.0 MCH 30.3 MCHC 32.9 RDW 12.7 Plt Count 122 L MPV 10.9 Immature Gran % (Auto) 0.2 Neut % (Auto) 75.7 H Lymph % (Auto) 14.8 L [place] % (Auto) 8.1 Eos % (Auto) 0.6 Baso % (Auto) 0.6 Lymph # (Auto) 0.7 L [place] # (Auto) 0.4 Eos # (Auto) 0.0 Baso # (Auto) 0.0 Abs Immat Gran (auto) 0.01 Absolute Neuts (auto) 3.6 Absolute Nucleated RBC 0.000 Nucleated RBC % (auto) 0.0 Anion Gap 9 L Estim Creat Clear Calc 63.2 Estimated GFR > 60 POC Glucose 146 H Random Glucose 180 H Calcium 8.1 L D Blood Type Antibody Screen 04/03/21 04/03/21 07:18 10:59 MCV MCH MCHC RDW Plt Count MPV Immature Gran % (Auto) Neut % (Auto) Lymph % (Auto) [place] % (Auto) Eos % (Auto) Baso % (Auto) Lymph # (Auto) [place] # (Auto) Eos # (Auto) Baso # (Auto) Abs Immat Gran (auto) Absolute Neuts (auto) Absolute Nucleated RBC Nucleated RBC % (auto) Anion Gap Estim Creat Clear Calc Estimated GFR POC Glucose 154 H 164 H Random Glucose Calcium Blood Type Antibody Screen Assessment and Plan (1) Type 2 diabetes mellitus: Status: Acute (2) GERD (gastroesophageal reflux disease): Status: Acute (3) Asthma: Status: Acute Assessment and Plan: 70-year-old female postop right total mastectomy with flap developed transient hypotension most likely related to vagal vagal episode. Spontaneously returned to baseline 1. Hypotension immediate post-op right total mastectomy secondary to triple negative breast Ca resolved. DC IV fluids at the discretion of surgery 2.DMII Continue sliding scale and adjust as indicated. Add back outpatient regimen as intake improves...no indications to resume therapies at this time 3. HTN Acceptable control off meds. No changes at this time 4.Asthma Mild Intermittant..will order prn Albuterol nebs 5. GERD COntinue PPI Will follow . Thanks Quality Stroke Does the patient have a stroke diagnosis?: No VTE Prior VTE?: No VTE Risk Level:: Surgical - moderate VTE Device Contraindication: N/A - Device Ordered VTE Drug Contraindication: Treatment Not Indicated
--- NOTE | 2021-04-03 15:31 | MHC.CM.PN ---
IMM 04/03/21, EMR REVIEWED, PT ADMITE S/P R MOD RADICAL MASTECTOMY, CM MET W/PT AND DTR WAS AT BEDSIDE, PT IS A&OX4, PT REPORTS SHE INDEPENDENT W/NO DME OR HOME SERVICES, PT WILLING TO ACCEPT VNA IF RECOMMENDED, PER DTR/PT SURGEON REPORTED DRAIN WILL BE REMOVED PRIOR TO D/C, PT VERIFIES PCP [facility] PO AND DENIES HAVING A HCP, PT WOULD LIKE TO COMPLETE W/CM PRIOR TO D/C. D/C PLAN: HOME VS HOME W/VNA, FAMILY FOR TRANSPORT PT HAS DR MASSEY FOR ONCOLOGY
[2021-04-03 17:30] LABS: Glucose, Whole Blood 143 mg/dL (60-115)
[2021-04-03 20:11] LABS: Glucose, Whole Blood 187 mg/dL (60-115)
[2021-04-04 03:51] VITALS: BP 152/74; PULSE 98; RESP 18; TEMP 36.3; O2SAT 94
[2021-04-04 05:49] LABS: Basophils Percent Auto 0.3 % (0-2); Hemoglobin 10.3 g/dl (12.0-16.0); Imm Gran Abs Auto 0.01 X10*3/uL (0.00-0.03); Imm Gran Pct Auto 0.3 % (0.0-0.4); MANUAL DIFF FLAG SCAN; Mean Corpuscular Hemoglobin 30.6 pg (27.0-33.0); PLT CLUMP 1; Red Blood Count 3.37 X10*6/uL (4.20-5.50); SCAN SMEAR FLAG 1
[2021-04-04 05:51] LABS: Eosinophils Absolute Auto 0.1 X10*3/uL (0.0-0.4); Eosinophils Percent Auto 3.6 % (0-4); Hematocrit 30.9 % (37.0-47.0); Lymphocytes Absolute Auto 0.7 X10*3/uL (1.2-4.9); Lymphocytes Percent Auto 19.2 % (20-40); Mean Corpuscular HGB Conc 33.3 g/dl (31.0-35.0); Mean Corpuscular Volume 91.7 fL (80.0-98.0); Mean Platelet Volume 10.7 fL (9.4-12.3); Monocytes Absolute Auto 0.2 X10*3/uL (0.1-1.2); Monocytes Percent Auto 5.5 % (2-11); Neutrophils Absolute Auto 2.6 x10*3/uL (2.0-8.3); Neutrophils Percent Auto 71.1 % (45-73)
[2021-04-04] MEDS: Omeprazole 20 MG CAPSULE.DR PO (06:13)
[2021-04-04 06:18] LABS: Platelet Count 109 X10*3/uL (160-400); SLIDE REVIEW VERIFIED; White Blood Count 3.6 X10*3/uL (4.8-10.8)
[2021-04-04 07:10] VITALS: BP 173/80; PULSE 97; RESP 17; TEMP 36.1; O2SAT 95
[2021-04-04 07:39] LABS: Glucose, Whole Blood 164 mg/dL (60-115)
[2021-04-04] MEDS: Magnesium Oxide 400 MG TABLET PO (07:43)
[2021-04-04] MEDS: Insulin Lispro 100 UNIT/ML 3 ML VIAL SUBCUT (07:43)
[2021-04-04] MEDS: Cholecalciferol (Vitamin D3) 25 MCG TABLET 50 MCG PO (07:43)
--- NOTE | 2021-04-04 08:36 | W.MHC.F2F ---
Service Date Service Date: 04/04/21 Encounter Date of encounter: 04/04/21 Encounter: Patient evaluated and dressings changed. CARINA output noted. Repeat laboratories in a.m. reviewed. Reasons for Services Signs and symptoms assessed: Vital signs, CARINA output, right chest wounds examined. Reason for detention: wound care and postoperative assessment and/or care Reason for physical therapy: home safety and mobility and therapeutic exercises Overseeing Care: Deepak Reeder Homebound: Leaving the home is medically contraindicated at this time without the asist of a device and/or another person due th the listed conditions above and below. Reason homebound: unsteady gait / fall risk, weakness related to hospital stay and unable to drive Homebound supporting statement: Patient is 2 days status post left modified radical mastectomy for recurrent breast cancer. She developed a hematoma in the chest wall which responded to a compressive dressing. Patient should avoid strenuous activity and should not drive until drainage decreases. Certification: Based on the above findings, I certify that this patient is confined to the home and needs intermittent detention care, physical therapy and/or speech therapy, or continues to need occupational therapy. The patient is under my care, and I have initiated the establishment of the plan of care. The patient will be followed by a physician who will periodically review the plan of care.
--- NOTE | 2021-04-04 08:42 | P.DS_ITS ---
DS: Providers Provider Date of Service: 04/04/21 Date of admission: 04/02/21 14:21 Date of discharge: 04/04/21 Primary care physician: Osvaldo Guerra MD Admitting clinician: Deepak Reeder Attending physician on admission: Deepak Reeder Consults: 04/02/21 19:05 Consult to Hospitalist Stat Consulting Provider: Hospitalist Reason For Exam: hypotensive post op. 04/02/21 19:05 Consult to Hospitalist Routine Consulting Provider: Hospitalist Reason For Exam: diabetes, hypertension, breast ca, med management Attending physician on discharge: Deepak Reeder Discharging clinician: Deepak Reeder DS: Diagnosis Discharge Diagnosis (1) Invasive ductal carcinoma of right breast: Status: Acute (2) Triple negative malignant neoplasm of breast: Status: Acute (3) Type 2 diabetes mellitus: Status: Acute (4) GERD (gastroesophageal reflux disease): Status: Acute (5) Asthma: Status: Acute DS: Summary Hospital Course Hospital Course: 70-year-old female patient a prior history of invasive lobular carcinoma of the right breast treated at [facility] in 2016 status post lumpectomy, axillary sentinel node biopsy and radiation therapy.? She had a recurrence score of 19 and was subsequently placed on Arimidex for [address] Pierre performed a right breast intact stereotactic biopsy in 2018 which revealed benign breast tissue with stromal fibrosis and focal sclerosing adenosis with dystrophic calcifications.? The patient recently palpated a new lump in the right breast right above the crease in the 6 o'clock position approximately 1 month ago.? She denies any pain associated with the lump.? [facility] and ultrasound .? This revealed an irregular mass in the posterior inferior breasts approximately the 6 o'clock position measuring approximately 1.8 cm.? This was felt to be suspicious for malignancy (BI-RADS 4C:? High suspicion for malignancy).? She reports a strong family history of breast cancer including her mother and 2 sisters 1 of which has metastatic disease currently. She underwent an ultrasound-guided core biopsy on 03/15/2021.? Returns today to review the pathology results.? Pathology revealed infiltrating ductal carcinoma right breast 06:00 o'clock location.? Lymphovascular invasion is not identified.? Tumor is ER VA and HER2 Abad negative.? This is different than her prior tumor in 2016. ? Patient underwent a right modified radical mastectomy on 04/02/2021 as a short-stay admit. Operative findings were consistent with a mass in the lower portion of the right breast. She tolerated the procedure well and was transferred to PACU. While in PACU and she developed some swelling in the upper portion of the breast flap with associated hypotension and bradycardia. The reaction was felt to be a vasovagal response she subsequently responded to fluid bolus, atropine, and phenylephrine. Patient remained hemodynamically stable for the remainder of her hospitalization. Perry-Choi drains are draining mainly sanguinous material. Dressings were changed on 04/04/2021 in flaps remained viable with a small amount of ecchymosis. Patient will be discharged home with Perry-Choi drains in place. Patient will measure the output on a daily basis and recorded. I have asked her to bring the record to her next office visit. She should avoid lifting greater than 5 lb with the right arm. VNA will be requested to monitor of wound and Perry-Choi care. Physical therapy will be requested for therapeutic exercises of the right arm. Time spent discussing smoking cessation with patient: 3 to 10 minutes Status at Discharge Functional status at discharge: independent ambulation Overall status at discharge: patient is not back to baseline Time Spent with Patient Time attestation: Total time spent providing and/or coordinating discharge services: Discharge coordination time: Less than 30 minutes Quality: Stroke Does the patient have a stroke diagnosis?: No Physical Exam Vital Signs: Vital Signs: Last Vital Signs Temp 96.9 F 04/04/21 07:10 Pulse 97 04/04/21 07:10 Resp 17 04/04/21 07:10 BP 173/80 H 04/04/21 07:10 Pulse Ox 95 04/04/21 07:10 BMI result Body Mass Index 32.1 Const: General: comfortable, alert and awake Nutritional Appearance: well nourished Orientation/consciousness: patient oriented x3 Limitations: no limitations HENMT: Head: Yes normocephalic and Yes atraumatic Ears: hearing grossly normal bilaterally Chest: Other: Chest wounds are clean, dry, and intact. Perry-Choi drain sites are clean and intact. Resp: Effort & Inspection: normal respiratory effort, no audible wheezes, no cough and no respiratory distress GI: Inspection: Yes normal to inspection Skin: General skin exam: no rashes or lesions noted Neuro: General: patient oriented x3 Extrem: Other: Edema in left arm due to IV DS: Data Data Completed and Pending Pending studies at discharge: Pending at discharge 04/02/21 12:13 Surgical [PTH] Routine Labs on day of discharge: Laboratory Results - last 24 hr 04/03/21 04/03/21 04/03/21 10:59 17:25 19:38 WBC RBC Hgb Hct MCV MCH MCHC RDW Plt Count MPV Immature Gran % (Auto) Neut % (Auto) Lymph % (Auto) [place] % (Auto) Eos % (Auto) Baso % (Auto) Lymph # (Auto) [place] # (Auto) Eos # (Auto) Baso # (Auto) Abs Immat Gran (auto) Absolute Neuts (auto) Absolute Nucleated RBC Nucleated RBC % (auto) Smear Tech's Comments POC Glucose 164 H 143 H 187 H 04/04/21 04/04/21 05:00 07:33 WBC 3.6 L RBC 3.37 L Hgb 10.3 L Hct 30.9 L MCV 91.7 MCH 30.6 MCHC 33.3 RDW 13.0 Plt Count 109 L MPV 10.7 Immature Gran % (Auto) 0.3 Neut % (Auto) 71.1 Lymph % (Auto) 19.2 L [place] % (Auto) 5.5 Eos % (Auto) 3.6 Baso % (Auto) 0.3 Lymph # (Auto) 0.7 L [place] # (Auto) 0.2 Eos # (Auto) 0.1 Baso # (Auto) 0.0 Abs Immat Gran (auto) 0.01 Absolute Neuts (auto) 2.6 Absolute Nucleated RBC 0.000 Nucleated RBC % (auto) 0.0 Smear Tech's Comments VERIFIED POC Glucose 164 H Discharge Plan Discharge Patient Disposition: Home Health Service Discharge Diagnosis: right breast CA s/p right modified radical mastectomy Referrals: Deepak Reeder MD [Physician] - 1 Week Po,Osvaldo Mendoza MD [Primary Care Provider] - 1 Week Discharge Medications: New oxycodone-acetaminophen [Endocet] 5-325 mg tablet 1 tab PO Q6H PRN (Reason: pain (scale score 7-10)) Qty: 20 RF: 0 Continued cholecalciferol (vitamin D3) 50 mcg (2,000 unit) capsule 50 mcg PO DAILY Qty: 30 RF: 11 insulin degludec 100 unit/mL (3 mL) insulin pen 14 unit subcut DAILY Qty: 15 RF: 3 losartan 100 mg tablet 100 mg PO DAILY Qty: 90 RF: 2 magnesium oxide 500 mg tablet 500 mg PO DAILY Qty: 30 RF: 11 pantoprazole 40 mg tablet,delayed release (DR/EC) 40 mg PO DAILY Qty: 90 RF: 3 rosuvastatin 10 mg tablet 10 mg PO DAILY Qty: 90 RF: 3 albuterol sulfate 90 mcg/actuation HFA aerosol inhaler 2 inh inhalation Q6H PRN (Reason: bronchospasm) 90 Days Qty: 8.5 RF: 0 insulin aspart U-100 [Novolog Flexpen U-100 Insulin] 100 unit/mL (3 mL) insulin pen 6 unit subcut TID Qty: 15 RF: 11 (DME) pen needle, diabetic [1st Tier Unifine Pentips] 32 gauge x 5/32 needle See Rx Instructions .ROUTE .MEDSUPPLY Qty: 4 RF: 4 (DME) FreeStyle Lite Strips Strip See Rx Instructions .ROUTE .MEDSUPPLY Qty: 400 RF: 3 (DME) blood pressure monitor [Blood Pressure Kit] Kit See Rx Instructions .Route Qty: 1 RF: 0 labetalol 300 mg tablet 300 mg PO BID 90 Days Qty: 180 RF: 2 hydralazine 25 mg tablet 25 mg PO BID Qty: 60 RF: 1 (DME) lancets [TRUEplus Lancets] 33 gauge misc See Rx Instructions .Route Qty: 100 RF: 3 Held aspirin 81 mg tablet,delayed release (DR/EC) 81 mg PO DAILY Qty: 90 RF: 2 Hold Instructions: Resume on 04/08/21. Discharge Orders: Discharge Order (Routine); Ordered 04/04/21 Ordered By: Deepak Reeder Diet: advance to usual diet Activity on Discharge: No heavy lifting Stand Alone Forms: Patient Portal Discharge page Activity Restrictions/Additional Instructions: If the incision area is tender, you may apply an ice pack for short intervals (No more than 20 minutes on, followed by at least 20 minutes off). Do not apply heat. Do not use creams, lotions, or topical antibiotics unless instructed to do so by your surgeon. These can cause infection or allergic reaction. Ok to shower. Remove clear dressing in 2-3 days. You have steri strips (small white cloth strips) covering your incision- these will fall off ~1 week. CARINA drain care- empty BID and PRN. Record output. No heavy lifting with right arm (>5lbs)! Follow up in office with Dr. Reeder in 1 week. ([phone]) Call Your Doctor If: -Your temperature exceeds 101.5? F -You experience excessive pain or swelling -You have an unexpected reaction to medication -You have excessive bleeding -You experience continued vomiting/nausea -Your incision begins to separate -Your incision shows signs of infection such as increased redness, swelling, excessive pain, drainage (light blood or clear fluid is normal) or heat Care Plan Goals: Return to baseline health and gradual return to activity following recovery period. CARINA drain removal. Health Concerns: Right breast CA Plan of Treatment: S/p right modified radical mastectomy Home with VNA services F/u in office with Dr. Reeder F/u with Dr. Rosario (oncology) Assessment: Doing well post op.
--- NOTE | 2021-04-04 09:12 | MHC.CM.PN ---
PT MEDICALLY CLEARED FOR D/C BY SURGICAL, PT WILL D/C HOME W/SN FOR DRAIN AND HOME PT, DTR FOR TRANSPORT.
[2021-04-04 09:25] VITALS: BP 173/80; PULSE 97; O2SAT 95
== END 2021-04-04 10:00 | disposition home health service (06) | DRG 582 ==
LOC: HO.SSSA 14:28 → HO.S3 16:45
PROVIDERS: Anesthesiology; Admitting Provider Surgery; PCP Internal Medicine; Visit Provider Surgery
PROC: 0HTT0ZZ Resection of Right Breast, Open Approach (ICD-10-PCS; CPT 19307; principal; 2021-04-02 10:30)
DX: C50.811 Malignant neoplasm of overlapping sites of right female breast (principal); L76.32 Postprocedural hematoma of skin and subcutaneous tissue following other procedure; Z17.1 Estrogen receptor negative status [ER-]; I95.81 Postprocedural hypotension; E11.9 Type 2 diabetes mellitus without complications; I10 Essential (primary) hypertension; K21.9 Gastro-esophageal reflux disease without esophagitis; J45.909 Unspecified asthma, uncomplicated; Z20.822 Contact with and (suspected) exposure to COVID-19; Z85.3 Personal history of malignant neoplasm of breast; Z80.3 Family history of malignant neoplasm of breast; Z91.041 Radiographic dye allergy status; Z79.4 Long term (current) use of insulin; Z79.899 Other long term (current) drug therapy
CPT/HCPCS: 36415; 80048; 82947; 85025; 86850; 86900; 86901; 87635; 88307; 88309; 88360; 93005; 97162; 99024; 99499; J0131; J0461; J0690; J1100; J1885; J2250; J2370; J2405; J3010

== ENCOUNTER → 2021-04-12 15:53 | Outpatient (BNVA) | payer MEDICARE, MEDICAID, SELFPAY | PROVIDERS: PCP Internal Medicine; Referring Provider Internal Medicine; Visit Provider Surgery | DX: Z48.3 Aftercare following surgery for neoplasm (principal); Z90.11 Acquired absence of right breast and nipple | CPT/HCPCS: 99212 ==

== ENCOUNTER → 2021-04-19 11:28 | Outpatient (BNVA) | payer MEDICARE, MEDICAID, SELFPAY | PROVIDERS: PCP Internal Medicine; Referring Provider Internal Medicine; Visit Provider Surgery | DX: Z48.3 Aftercare following surgery for neoplasm (principal); Z90.11 Acquired absence of right breast and nipple; C50.919 Malignant neoplasm of unspecified site of unspecified female breast | CPT/HCPCS: 99212 ==

== ENCOUNTER 2021-05-02 10:20 | Outpatient (REF) | payer MEDICARE, MEDICAID, SELFPAY ==
[2021-05-02 10:43] LABS: COVID-19 Test Negative (Negative)
== END 2021-05-02 10:21 | disposition home or self-care (01) ==
LOC: HO.LAB 10:20
PROVIDERS: Visit Provider Internal Medicine
DX: Z20.822 Contact with and (suspected) exposure to COVID-19 (principal)
CPT/HCPCS: 87635; C9803

== ENCOUNTER → 2021-05-07 07:01 | Outpatient (REF) | payer MEDICARE, MEDICAID, SELFPAY ==
[2021-05-07 07:16] LABS: MANUAL DIFF FLAG NO
[2021-05-07 07:39] LABS: Basophils Percent Auto 0.9 % (0-2); Eosinophils Absolute Auto 0.2 X10*3/uL (0.0-0.4); Eosinophils Percent Auto 6.7 % (0-4); Hematocrit 39.1 % (37.0-47.0); Hemoglobin 12.7 g/dl (12.0-16.0); Imm Gran Abs Auto 0.01 X10*3/uL (0.00-0.03); Imm Gran Pct Auto 0.3 % (0.0-0.4); Immature Retic Fraction 11.4 % (3.0-15.9); Lymphocytes Absolute Auto 0.7 X10*3/uL (1.2-4.9); Lymphocytes Percent Auto 22.4 % (20-40); Mean Corpuscular HGB Conc 32.5 g/dl (31.0-35.0); Mean Corpuscular Hemoglobin 30.4 pg (27.0-33.0); Mean Corpuscular Volume 93.5 fL (80.0-98.0); Mean Platelet Volume 10.5 fL (9.4-12.3); Monocytes Absolute Auto 0.3 X10*3/uL (0.1-1.2); Monocytes Percent Auto 8.8 % (2-11); Neutrophils Percent Auto 60.9 % (45-73); Platelet Count 152 X10*3/uL (160-400); Red Blood Count 4.18 X10*6/uL (4.20-5.50); Red Cell Distribution Width 13.2 % (11.0-16.0); Retic HGB Equivalent 29.4 pg (30.0-35.0); Reticulocyte Percent 1.4 % (0.5-1.8); White Blood Count 3.3 X10*3/uL (4.8-10.8)
--- NOTE | 2021-05-07 07:39 | CA_ITS ---
Transthoracic Echocardiogram Patient (Last, First, Middle): Sandee Valles, Gender: Female Date of : 1950 Age: 70 Procedure Date: 05/07/2021 Procedure Type: Transthoracic Echocardiogram Location: OP Height: 154.94 cm Weight: 74.84 kg BSA: 1.74 m2 Heart Rate: bpm BP: 118 / 60 mmHg Fermenting Cellar Dropper: SUSHMA Referring MD: Sandy Rosario MD Wordpress Developer: Raphael Roberson MD Symptoms: T45.1X5A ANTINEOPLASTIC AND IMMUNOSUPPRSSIVE DRUG ENCOUNTER Study Quality: Fair ECG Rhythm: Sinus Conclusions: - 1. Normal LV systolic function with mild left ventricular hypertrophy with grade 1 diastolic dysfunction 2. Mildly dilated left atrium 3. Normal cardiac valvular Dopplers 4. Normal RV systolic pressure 5. No pericardial effusion Findings Left Ventricle Normal left ventricular size and systolic function. There is mildly increased left ventricular wall thickness. The visually estimated ejection fraction is between 60-65%. Spectral Doppler is indicative of an impaired relaxation filling pattern. E/E prime ratio is <8, consistent with normal filling pressures. Evidence suggests grade I (mild) diastolic dysfunction. calculated peak global longitudinal endocardial strain is -18%, within normal limits Right Ventricle Normal right ventricular cavity size and systolic function. Atria The left atrium is mildly dilated. Interatrial shunt cannot be excluded. The right atrium is normal in size. Aortic Valve The aortic valve structure and function is likely normal. There is no aortic valve stenosis. There is mild aortic valve regurgitation. Mitral Valve Normal mitral valve structure and function. There is trace mitral valve regurgitation. There is no mitral valve stenosis. Pulmonic Valve The pulmonic valve was not well visualized. Tricuspid Valve Normal tricuspid valve structure. There is trace tricuspid valve regurgitation. The right ventricular systolic pressure is normal. The right ventricular systolic pressure is 23 mmHg. There is no evidence of pulmonary hypertension. Great Vessels All visible segments of the aorta are normal in size. The pulmonary artery was not well visualized. Venous The inferior vena cava is normal in size and collapses greater than 50% with inspiration. Pericardium/Pleural There is no evidence of pericardial effusion. Prior Study Comparison No significant change compared to prior study dated: 12/01/2015. Measurements 2D Linear Measurements IVSd: 1.23 0.6-0.9/0.6-1.0 cm LVIDd: 4.22 3.9-5.3/4.2-5.9 cm LVIDd Index: 2.43 2.4-3.2/2.2-3.1 cm/m2 LVIDs: 2.71 2.0-3.6 cm LVPWd: 1.22 0.7-1.1 cm Ao Root: 3.10 2.1-3.5 cm LA Diam: 4.20 2.7-3.8/3.0-4.0 cm LAIDs Index: 2.41 1.5-2.3 cm/m2 LV Mass: 230.45 67-162/88-224 g LV Mass Index: 132.44 43-95/49-115 g/m2 LVOT Diam: 2.10 3.0+(-)1.3 cm Mitral Valve MV Pk E: 0.55 MV PK A: 0.75 MV Decel Time: 155.00 E/A: 0.70 E'Lateral: 5.66 E'Medial: 4.90 E/E' Med: 11.20 E/E' Lat: 9.70 PHT: 45.00 MVA PHT: 4.89 Decel [place]: 3.54 Aortic Valve AoV Pk Zay: 1.54 AoV Mn Zay: 0.99 AoV VTI: 0.39 AoV Pk Grad: 9.00 Aov Mn Grad: 5.00 CALI Cont.VTI: 2.62 LVOT LVOT Pk Zay: 1.17 LVOT Mn Zay: 0.76 LVOT VTI: 0.29 LVOT Pk Grad: 5.00 LVOT Mn Grad: 3.00 LVOT Diam: 2.10 LVOT Area: 3.46 Diastolic Function MV Pk E: 0.55 MV Pk A: 0.75 E/A: 0.70 E'Medial: 4.90 E/E' Med: 11.20 E' Laterial: 5.66 E/E' Lat: 9.70 Tricuspid Valve TR Pk Zay: 2.21 TR Pk Grad: 20.00 RA Press: 3.00 RVSP: 23.00 Great Vessels Aorta Ao Root-2D: 3.10 2.0-3.7 cm Ao Asc: 3.10 2.1-3.4 cm Pulmonary Valve PV Pk Zay: 0.87 Peak PV Grad: 3.00 Updated in Other Vendor System with Status of Final Raphael Roberson MD electronically signed on 05/08/2021 8:54:01 AM with status of Final
[2021-05-07 08:04] LABS: Estimated Average Glucose 146 mg/dL; Hemoglobin A1c % 6.7 %
[2021-05-07 08:06] LABS: Alanine Aminotransferase 14 U/L (0-31); Albumin Level 4.2 g/dL (3.5-5.0); Alkaline Phosphatase 66 U/L (39-117); Anion Gap 10 (12-20); Anion Gap 11 (12-20); Aspartate Amino Transferase 14 U/L (5-31); Aspartate Amino Transferase 15 U/L (5-31); Blood Urea Nitrogen 15 mg/dL (9-16); Calcium 9.4 mg/dL (8.4-10.2); Calcium 9.6 mg/dL (8.4-10.2); Carbon Dioxide 30 mmol/L (22-29); Chloride 102 mmol/L (96-108); Chloride 103 mmol/L (96-108); Cholesterol 146 mg/dL; Estimated Glomerular Filt Rate > 60; Glucose Random 173 mg/dL (60-115); Glucose Random 174 mg/dL (60-115); HDL Cholesterol 43 mg/dL; Iron 63 mcg/dL (30-160); LDL Cholesterol Calculated 86 mg/dl; Percent Iron Saturation 14 % (15-50); Potassium 4.2 mmol/L (3.3-5.1); Potassium 4.3 mmol/L (3.3-5.1); Sodium 139 mmol/L (135-145); Total Iron Binding Capacity 435 mcg/dL (228-428); Total Protein 7.1 g/dL (6.5-8.0); Triglycerides 85 mg/dL; Unsaturated Iron Binding 372 ug/dL
[2021-05-07 08:24] LABS: HBS Num1 35.44 mIU/mL (0-7.99); HBc Num1 0.07 S/CO (0.00-0.79); Hepatitis B Core Antibody Nonreactive (Nonreactive); Hepatitis B Surface Antigen Negative (Negative); ~HepC Num1 0.08 S/CO (0.00-0.79); ~Hepatitis B Surface Antibody REACTIVE (Nonreactive); ~Hepatitis C Antibody Nonreactive (Nonreactive)
[2021-05-07 08:27] LABS: Ferritin 28 ng/mL (10-250); Thyroid Stimulating Hormone 2.15 uIU/mL (0.32-4.0)
[2021-05-07 10:04] LABS: Folate 16.1 ng/mL (> or = 4.0); Vitamin B12 351 pg/mL (200-900)
== END ==
LOC: HO.CARD 07:01
PROVIDERS: Physician Assistant; Absent Provider Internal Medicine; PCP Internal Medicine; Visit Provider Internal Medicine
DX: D64.9 Anemia, unspecified (principal); E78.00 Pure hypercholesterolemia, unspecified; R94.5 Abnormal results of liver function studies; T45.1X5A Adverse effect of antineoplastic and immunosuppressive drugs, initial encounter; E11.21 Type 2 diabetes mellitus with diabetic nephropathy
CPT/HCPCS: 36415; 80048; 80053; 80061; 82306; 82607; 82728; 82746; 83036; 83540; 84443; 84450; 84460; 85025; 85045; 86704; 86706; 86803; 87340; 93306; 93356

== ENCOUNTER 2021-05-15 08:30 | Outpatient (REF) | payer MEDICARE, MEDICAID, SELFPAY ==
--- NOTE | 2021-05-15 08:33 | EEG_ITS ---
This is a 16-channel EEG with an EKG lead. The patient is reported awake during the tracing. Background EEG rhythm is 10-12 hertz, 5 to 50 microvolt posteriorly, lower amplitude fast anteriorly. Patient at times transition into drowsiness. Intermittently, slight asymmetry was noted with sharply contoured theta discharges noted from left frontal central area, which at times had configuration of sharp waves. No definite spike was noted. Cardiac lead does not reveal any significant abnormality. Hyperventilation is not performed. IMPRESSION: Mildly abnormal EEG, which should be investigated further with probably an ambulatory EEG specially if index of suspicion is high for complex partial seizure disorder. MD KVNG Clark/NORRIS / [id number]
== END 2021-05-15 08:31 | disposition home or self-care (01) ==
LOC: HO.NEURO 08:30
PROVIDERS: PCP Internal Medicine; Visit Provider Internal Medicine
DX: R55 Syncope and collapse (principal)
CPT/HCPCS: 95816

== ENCOUNTER → 2021-05-22 11:23 | Outpatient (BNVA) | payer MEDICARE, MEDICAID, SELFPAY | PROVIDERS: PCP Internal Medicine; Referring Provider Internal Medicine; Visit Provider Physician Assistant Surgical | DX: Z48.3 Aftercare following surgery for neoplasm (principal); Z90.11 Acquired absence of right breast and nipple | CPT/HCPCS: 99212 ==

== ENCOUNTER → 2021-06-14 10:01 | Outpatient (BNVA) | payer MEDICARE, MEDICAID, SELFPAY | PROVIDERS: PCP Internal Medicine; Referring Provider Internal Medicine; Visit Provider Surgery | DX: C50.911 Malignant neoplasm of unspecified site of right female breast (principal); Z90.11 Acquired absence of right breast and nipple; Z80.3 Family history of malignant neoplasm of breast | CPT/HCPCS: 99212 ==

== ENCOUNTER → 2021-06-15 12:46 | Outpatient (REF) | payer MEDICARE, MEDICAID, SELFPAY ==
--- NOTE | 2021-06-15 12:50 | ECG_ITS ---
Hook-up date: 2021-06-15 13:07:00 Duration: 47:59:00 Test Indications: SYNCOPE AND COLLAPSE Medications: [id number] QRS complexes 276 Ventricular ectopics which represent <1 % of total QRS comp. 86 Supraventricular ectopics which represent <1 % of total QRS comp. * Paced QRS complexs which represent % of total QRS comp. VENTRICULAR ECTOPY 274 Isolated 0 Bigeminal Cycles 1 Couplets 0 Runs 0 Beats in Runs * Beats LONGEST at * BPM at :: -- * Beats FASTEST at * BPM at :: -- SUPRAVENTRICULAR ECTOPY 80 Isolated 1 Couplets 1 Runs 4 Beats in Runs 4 Beats LONGEST at 129 BPM at 00:22:40 2021-06-16 4 Beats FASTEST at 129 BPM at 00:22:40 2021-06-16 HEART RATES 50 MIN at 12:40:17 2021-06-17 72 AVG 103 MAX at 18:03:46 2021-06-16 LONGEST RR 1.1520 secs at 12:40:17 2021-06-17 S-T LEVELS Channel 1 - 128 mm at 13:07:00 2021-06-15 - 128 mm at 13:07:00 2021-06-15 Channel 2 - 128 mm at 13:07:00 2021-06-15 - 128 mm at 13:07:00 2021-06-15 Channel 3 - 128 mm at 03:22:61 -- - 128 mm at 03:22:61 Basic rhythm Normal sinus rhythm No long pause or profound bradycardia Rare ectopics Patient did not report any symptoms in the diary Referred By: Osvaldo Guerra Overread By: WILBERTO PAREDES MD
== END ==
LOC: HO.CARD 12:46
PROVIDERS: PCP Internal Medicine; Visit Provider Internal Medicine
DX: R00.2 Palpitations (principal); R55 Syncope and collapse
CPT/HCPCS: 93225; 93226

== ENCOUNTER 2021-06-19 12:54 | Outpatient (REF) | payer MEDICARE, MEDICAID, SELFPAY ==
--- NOTE | 2021-06-19 12:58 | EEG_ITS ---
This is a 16-channel 48-hour ambulatory EEG. Patient kept a diary, but did not report any significant events. Each day of EEG was separately reviewed and included wakefulness and sleep. Background EEG rhythm during wakefulness was mostly low amplitude, fast beta to alpha with no obvious asymmetry or paroxysmal tendency. Intermittently brief bursts of FIRDA were noted. No definite focal discharges, sharp waves, or spikes were noted. Cardiac lead did not reveal any significant abnormality. Patient transitioned into stage N1 to N3 sleep with no significant abnormality. IMPRESSION: No significant abnormality noted to suggest seizure disorder on this electroencephalogram. The patient had not reported any events. MD KVNG Clark/NORRIS / [id number]
== END 2021-06-19 12:55 | disposition home or self-care (01) ==
LOC: HO.NEURO 12:54
PROVIDERS: Visit Provider Internal Medicine
DX: R55 Syncope and collapse (principal)
CPT/HCPCS: 95708; 95957

== ENCOUNTER → 2021-07-03 10:19 | Outpatient (BNVA) | payer MEDICARE, MEDICAID, SELFPAY | PROVIDERS: PCP Internal Medicine; Visit Provider Surgery | DX: Z48.3 Aftercare following surgery for neoplasm (principal); Z90.11 Acquired absence of right breast and nipple | CPT/HCPCS: 99212 ==